=== PATIENT | female | born 1965 | race Caucasian/White ===

== ENCOUNTER 2017-05-07 12:13 | Observation (INO) | payer OTHER ==
[~2017-05-07] VITALS: Ht 162.6 cm; Wt 100.0 kg
[~2017-05-07 12:13] MED LIST: BACITRACIN OINT 500U/GM, 15 GM ONE; EPINEPHRINE TOPICAL SOLN 1 MG/ML, 30ML ONE; ESCI20TA10 PO; FLUORESCEIN OPHTHALMIC 1 MG STRIP ONE; LIDOCAINE/PF 1%-EPI 1:200K, 30 ML ONE; OXYMETAZOLINE NASAL SPRAY 0.05%, 15ML ONE
[2017-05-07] MEDS ORDERED: LACTATED RINGERS 1,000 ML IV SCH (12:26)
[2017-05-07 12:32] LABS: HCG UR LOT HCG7030192
[2017-05-07 12:39] LABS: HCG UR OBC PASS
[2017-05-07 12:56] VITALS: BP 127/84
[2017-05-07] MEDS ORDERED: MIDAZOLAM 1 MG/ML, 2ML ONE (13:37)
[2017-05-07] MEDS ORDERED: FENTANYL PF 100 MCG/2ML ONE ×4 (13:38→15:41)
[2017-05-07] MEDS ORDERED: MIDAZOLAM 1 MG/ML, 2ML IV PRN (14:00)
[2017-05-07] MEDS ORDERED: PROMETHAZINE 25 MG/ML, 1ML IV PRN (14:00)
[2017-05-07] MEDS ORDERED: OXYcodone 5 MG/5 ML ORAL.SOL UDC PO PRN (14:00)
[2017-05-07] MEDS ORDERED: DEXAMETHASONE 4 MG/ML, 1ML ONE ×2 (14:00)
[2017-05-07] MEDS ORDERED: ACETAMINOPHEN 325 MG TABLET PO PRN (14:00)
[2017-05-07] MEDS ORDERED: HYDROmorphone 1 MG/ML, 1ML IV PRN (14:00)
[2017-05-07] MEDS ORDERED: ONDANSETRON 2MG/ML, 2ML ONE ×2 (14:00)
[2017-05-07] MEDS ORDERED: hydrALAzine 20 MG/ML, 1ML IV PRN (14:00)
[2017-05-07] MEDS ORDERED: ALBUTEROL SULFATE 2.5 MG/3 ML NPPB PRN (14:00)
[2017-05-07] MEDS ORDERED: CEFAZOLIN 1,000 MG ONE ×2 (14:00)
[2017-05-07] MEDS ORDERED: ONDANSETRON 2MG/ML, 2ML IVPush PRN (14:00)
[2017-05-07] MEDS ORDERED: MEPERIDINE/PF 25MG/0.5ML IVPush PRN (14:00)
[2017-05-07] MEDS ORDERED: SUCCINYLCHOLINE 20 MG/ML, 10ML ONE (14:05)
[2017-05-07] MEDS ORDERED: ROCURONIUM 10MG/ML,5ML ONE (14:05)
[2017-05-07] MEDS ORDERED: PROPOFOL 10 MG/ML, 20ML ONE (14:05)
[2017-05-07] MEDS: LABETALOL 5MG/ML, 20ML IV PRN ×3 (15:32→16:15)
[2017-05-07] MEDS ORDERED: OXYcodone 5 MG/5 ML ORAL.SOL UDC ONE (15:41)
[2017-05-07] MEDS ORDERED: LABETALOL 5MG/ML, 20ML ONE (15:41)
[2017-05-07] MEDS: FENTANYL PF 100 MCG/2ML IV PRN ×4 (15:47→16:41)
[2017-05-07] MEDS ORDERED: hydrALAzine 20 MG/ML, 1ML ONE (15:54)
[2017-05-07 20:27] VITALS: BP 122/78
[2017-05-07] MEDS ORDERED: ONDANSETRON 4 MG TABLET PO PRN (21:00)
[2017-05-07] MEDS ORDERED: HYDROcodone/APAP 5/325 TABLET PO PRN (21:30)
[2017-05-07] MEDS: ACETAMINOPHEN 325 MG TABLET PO PRN (22:22)
[2017-05-07] MEDS: CEFAZOLIN PMX 1GM/50ML 50 ML IV SCH (23:22)
[2017-05-07 23:36] VITALS: BP 117/77
[2017-05-08] MEDS: ACETAMINOPHEN 325 MG TABLET PO PRN ×2 (02:43→06:30)
[2017-05-08 03:27] VITALS: BP 119/78
[2017-05-08] MEDS: CEFAZOLIN PMX 1GM/50ML 50 ML IV SCH (05:32)
[2017-05-08 09:07] VITALS: BP 130/77
[2017-05-08] MEDS ORDERED: CEPH-368 PO (09:45)
[2017-05-08] MEDS ORDERED: HYDR-3240 PO (09:46)
== END 2017-05-08 09:50 | disposition home or self-care (01) ==
LOC: OUT 12:13 → 4NOR 19:10 → OUT 19:10 → DCLOUNGE 21:03 → 4NOR 05-08 11:46 → OUT 05-08 12:07 → DCLOUNGE 05-08 12:07 → OUT 05-08 12:08
PROVIDERS: ADMIT Otolaryngology; ATTEND Otolaryngology
DX: J34.2 Deviated nasal septum (principal); J34.3 Hypertrophy of nasal turbinates; J32.2 Chronic ethmoidal sinusitis; E66.9 Obesity, unspecified; Z68.37 Body mass index [BMI] 37.0-37.9, adult
CPT/HCPCS: 30520; 30930; 30999; 31255; 31256; 71010; 81025; 88304; 96365; 96375; G0378; J0330; J0360; J0690; J1100; J2250; J2405; J2704; J3010; J3490; J7120

== ENCOUNTER 2018-04-04 06:03 | Emergency (ER) | payer OTHER ==
[~2018-04-04] VITALS: Ht 162.6 cm; Wt 99.6 kg
[~2018-04-04 06:03] MED LIST changes: -BACITRACIN OINT 500U/GM, 15 GM ONE; +CEPH-368 PO; -EPINEPHRINE TOPICAL SOLN 1 MG/ML, 30ML ONE; -FLUORESCEIN OPHTHALMIC 1 MG STRIP ONE; +HYDR-3240 PO; -LIDOCAINE/PF 1%-EPI 1:200K, 30 ML ONE; -OXYMETAZOLINE NASAL SPRAY 0.05%, 15ML ONE
[2018-04-04 06:05] VITALS: BP 114/84
== END 2018-04-04 08:18 | disposition home or self-care (01) ==
LOC: ED 08:00
DX: S83.411A Sprain of medial collateral ligament of right knee, initial encounter (principal); X58.XXXA Exposure to other specified factors, initial encounter; Y93.89 Activity, other specified; Y92.89 Other specified places as the place of occurrence of the external cause; Y99.8 Other external cause status
CPT/HCPCS: 99284